=== PATIENT | female | born 1985 | race American Indian/Alaskan Native ===

== ENCOUNTER 2019-08-16 11:42 | Emergency (ER) | payer SELFPAY ==
[2019-08-16] MEDS ORDERED: amLODIPine 5 MG TAB PO ONE (12:06)
--- NOTE | 2019-08-16 12:06 | Event Note ---
ED Screening Note ED Screening Note: cold symptoms that began 4 days ago states she has been taking dayquil and nyquil she has associated dry cough, sore throat no fever, no vomiting, no diarrhea, no SOB states she also has left foot pain that 2-3 weeks no fall or injury no numbness or weakness [place] PMHx HTN states she "used to take a water pill" states she has not taken it in several months she does not have PCP BP elevated in triage it is 220/113 no abnormality on foot exam lungs are clear bilaterally This initial assessment/diagnostic orders/clinical plan/treatment(s) is/are subject to change based on patients health status, clinical progression and re- assessment by fellow clinical providers in the ED. Further treatment and workup at subsequent clinical providers discretion. Patient/guardian urged not to elope from the ED as their condition may be serious if not clinically assessed and managed. Initial orders include: ACC eval, med
[2019-08-16 13:53] VITALS: BP 165/96
[2019-08-16] MEDS ORDERED: KETOROLAC 60 MG/2 ML INJ IM ONE (14:31)
[2019-08-16] MEDS ORDERED: methylPREDNISolone Sod Succinate 125 MG/2 ML INJ IM ONE (14:31)
--- NOTE | 2019-08-16 14:49 | Emergency Department Report ---
ED General Adult HPI - General Chief complaint: Extremity Problem,Nontraumatic Stated complaint: FLU SX/LT FOOT PAIN Time Seen by Provider: 08/16/19 11:57 Source: patient Mode of arrival: Ambulatory Limitations: No Limitations - History of Present Illness Initial comments: The patient presents to the emergency department for chief complaint of cough, cold, congestion for the last 3-4 days. Patient does endorse having multiple sick contacts. Patient states only had a fever for one day. Patient also complains of left foot pain has been present for the last 3 weeks. Patient states she has a history of left foot pain and has seen a risk management consultant in the past. She was told if the pain was secondary to have a flat feet. Patient denies any chest pain, shortness of breath, abdominal pain. Patient denies injury to left foot recently. Patient also states that she is out of her hypertension medications. Patient states she takes HCTZ -: Gradual Location: lower extremity Radiation: non-radiation Severity scale (0 -10): 5 Quality: aching Consistency: constant Improves with: rest Worsens with: movement Associated Symptoms: denies other symptoms Treatments Prior to Arrival: none - Related Data Previous Rx's Medication Instructions Recorded Last Taken Type HYDROcodone/APAP 5-325 [[place] 1 each PO Q6HR PRN #12 tablet 06/16/15 Unknown Rx 5/325] Promethazine Dm (Nf) [Phenergan Dm 5 ml PO Q6H PRN #120 06/16/15 Unknown Rx 6.25/15 mg 5 ml] Amoxicillin [Trimox CAP] 500 mg PO Q8H #30 capsule 10/30/15 Unknown Rx Ibuprofen [Motrin] 600 mg PO Q8H PRN #40 tablet 10/30/15 Unknown Rx Prednisone [predniSONE 10 mg 10 mg PO .TAPER #1 tab.ds.pk 10/30/15 Unknown Rx (6-Day Pack, 21 Tabs)] Promethazine /Codeine 5 ml PO Q6H PRN #150 ml 10/30/15 Unknown Rx [Phenergan/Codeine 6.25-10 mg/5 ml] ALBUTEROL Inhaler (OR & NICU) 2 puff IH Q4HR PRN #1 inhalation 08/16/19 Unknown Rx [ProAir HFA Inhaler] Naproxen [Naprosyn] 500 mg PO BID PRN #20 tablet 08/16/19 Unknown Rx guaiFENesin/CODEINE [Robitussin AC] 5 ml PO Q12HR PRN #180 oral.liqd 08/16/19 Unknown Rx hydroCHLOROthiazide [Hctz] 12.5 mg PO QDAY #30 capsule 08/16/19 Unknown Rx predniSONE [Deltasone] 20 mg PO DAILY #15 tablet 08/16/19 Unknown Rx Allergies Allergy/AdvReac Type Severity Reaction Status Date / Time No Known Allergies Allergy Unverified 06/16/15 10:48 ED Review of Systems ROS: Stated complaint: FLU SX/LT FOOT PAIN Other details as noted in HPI Constitutional: denies: chills, fever Eyes: denies: eye pain, eye discharge, vision change ENT: denies: ear pain, throat pain Respiratory: denies: cough, shortness of breath, wheezing Cardiovascular: denies: chest pain, palpitations Endocrine: no symptoms reported Gastrointestinal: denies: abdominal pain, nausea, diarrhea Genitourinary: denies: urgency, dysuria, discharge Musculoskeletal: denies: back pain, joint swelling, arthralgia Skin: denies: rash, lesions Neurological: denies: headache, weakness, paresthesias Psychiatric: denies: anxiety, depression Hematological/Lymphatic: denies: easy bleeding, easy bruising ED Past Medical Hx - Past Medical History Previous Medical History?: Yes Hx Hypertension: Yes - Surgical History Past Surgical History?: Yes Additional Surgical History: cyst removed from thyroid 2011, - Social History Smoking Status: Never Smoker Substance Use Type: None - Medications Home Medications: Home Medications Medication Instructions Recorded Confirmed Last Taken Type HYDROcodone/APAP 5-325 [[place] 1 each PO Q6HR PRN #12 tablet 06/16/15 Unknown Rx 5/325] Promethazine Dm (Nf) [Phenergan Dm 5 ml PO Q6H PRN #120 06/16/15 Unknown Rx 6.25/15 mg 5 ml] Amoxicillin [Trimox CAP] 500 mg PO Q8H #30 capsule 10/30/15 Unknown Rx Ibuprofen [Motrin] 600 mg PO Q8H PRN #40 tablet 10/30/15 Unknown Rx Prednisone [predniSONE 10 mg 10 mg PO .TAPER #1 tab.ds.pk 10/30/15 Unknown Rx (6-Day Pack, 21 Tabs)] Promethazine /Codeine 5 ml PO Q6H PRN #150 ml 10/30/15 Unknown Rx [Phenergan/Codeine 6.25-10 mg/5 ml] ALBUTEROL Inhaler (OR & NICU) 2 puff IH Q4HR PRN #1 inhalation 08/16/19 Unknown Rx [ProAir HFA Inhaler] Naproxen [Naprosyn] 500 mg PO BID PRN #20 tablet 08/16/19 Unknown Rx guaiFENesin/CODEINE [Robitussin AC] 5 ml PO Q12HR PRN #180 oral.liqd 08/16/19 Unknown Rx hydroCHLOROthiazide [Hctz] 12.5 mg PO QDAY #30 capsule 08/16/19 Unknown Rx predniSONE [Deltasone] 20 mg PO DAILY #15 tablet 08/16/19 Unknown Rx ED Physical Exam - General Limitations: No Limitations General appearance: alert, in no apparent distress - Head Head exam: Present: atraumatic, normocephalic - Eye Eye exam: Present: normal appearance, PERRL, EOMI - ENT ENT exam: Present: normal exam, normal orophraynx, mucous membranes moist, TM's normal bilaterally, normal external ear exam - Neck Neck exam: Present: normal inspection - Respiratory Respiratory exam: Present: normal lung sounds bilaterally. Absent: respiratory distress, wheezes, rales, rhonchi - Cardiovascular Cardiovascular Exam: Present: regular rate, normal rhythm. Absent: systolic murmur, diastolic murmur, rubs, gallop - GI/Abdominal GI/Abdominal exam: Present: soft, normal bowel sounds. Absent: distended, tenderness - Extremities Exam Extremities exam: Present: other (tenderness palpation over the metatarsals and tarsals of the left foot) - Back Exam Back exam: Present: normal inspection - Neurological Exam Neurological exam: Present: alert, oriented X3 - Psychiatric Psychiatric exam: Present: normal affect, normal mood - Skin Skin exam: Present: warm, dry, intact, normal color. Absent: rash ED Course Vital Signs 08/16/19 08/16/19 11:47 13:53 Temperature 98.3 F 97.2 F L Pulse Rate 76 55 L Respiratory 16 20 Rate Blood Pressure 246/144 165/96 Blood Pressure 165/96 [Right] O2 Sat by Pulse 99 100 Oximetry ED Medical Decision Making - Medical Decision Making Plan of care discussed with patient. X-rays of the foot were discussed and decided against in an collaborative agreement Critical care attestation.: If time is entered above; I have spent that time in minutes in the direct care of this critically ill patient, excluding procedure time. ED Disposition Clinical Impression: Bronchitis, Left foot pain, Hypertension Disposition: - TO HOME OR SELFCARE Is pt being admited?: No Does the pt Need Aspirin: No Condition: Stable Instructions: Chronic Bronchitis (ED), Acute Bronchitis (ED), Foot Sprain (ED), Hypertension (ED) Additional Instructions: return if worse Referrals: PAU SILVA MD [Staff Physician] - 3-5 Days [facility] [Provider Group] - 3-5 Days [facility] [Provider Group] - 3-5 Days ELLIOT WATTS DPM [Staff Physician] - 3-5 Days Time of Disposition: 14:49
== END 2019-08-16 15:34 | disposition home or self-care (01) ==
LOC: ED 11:42
DX: J40 Bronchitis, not specified as acute or chronic (principal); M79.672 Pain in left foot; I10 Essential (primary) hypertension; Z79.899 Other long term (current) drug therapy
CPT/HCPCS: 96372; 99282; J1885; J2930